=== PATIENT | male | born 1960 | race Caucasian/White ===

== ENCOUNTER 2016-04-04 10:42 | Day surgery (SDC) | payer OTHER ==
[~2016-04-04] VITALS: Ht 175.3 cm; Wt 95.2 kg
[~2016-04-04 10:42] MED LIST: 0.9% Sodium Chloride 1,000 ML IV SCH; HYDR-4150 PO; Sodium Chloride LOK Flush 10 mL Syringe IV PRN; fentaNYL-PF 50 mCg/mL 2 mL Inj IVPUSH PRN
[2016-04-04] MEDS ORDERED: LISI-567 PO (11:08)
[2016-04-04 11:14] VITALS: BP 147/89; PULSE 55; RESP 16; O2SAT 97
[2016-04-04 12:32] VITALS: BP 121/94; PULSE 54; RESP 16; O2SAT 95
[2016-04-04 12:41] VITALS: BP 137/86; PULSE 71; RESP 16; O2SAT 100
--- NOTE | 2016-04-05 00:13 | ENDO ---
[address] [address] ENDOSCOPY PROCEDURE PATIENT: SHIRLEY PERALTA : 1960 MR#: [id number] ADMIT: 04/04/2016 JOB ID: [id number] DATE OF PROCEDURE: 04/04/2016 PRIMARY PROVIDER: Fred Fair MD. PROCEDURE: Colonoscopy with hot snare polypectomy. INDICATIONS: A 55-year-old male with a personal history of adenomatous polyps. He had a large polyp that was removed from the cecum. He is due for surveillance. EQUIPMENT: [employer]-H180AL. SEDATION: 1. Versed 3 mg. 2. Fentanyl 75 mcg. COMPLICATIONS: None identified. BOWEL PREPARATION: Fair, adequate exam. PROCEDURE INFORMATION: After the risks and benefits were explained, written and verbal informed consent was obtained. The patient was brought into the endoscopy suite and placed into the left lateral decubitus position. Sedation was achieved as above. A digital rectal examination was accomplished. No significant pathology appreciated. The scope was introduced into the rectum and advanced under direct visualization to the level of the cecum, as identified by the appendiceal orifice and ileocecal valve. The scope was slowly withdrawn to carefully examine the mucosa for any defects or lesions. Retroflexed views were accomplished in the rectum. The colon was decompressed. The scope was removed from the patient tolerated the procedure well. FINDINGS: In the sigmoid colon, there was an approximately 6 mm polyp sessile removed with hot snare. No other significant pathology was appreciated throughout. We compared photographs from the last colonoscopy three years ago in the cecum and there was absolutely no evidence of any residual polypoid mucosa there. Multiple photographs were again taken. Retroflexed views from within the rectum were unremarkable. ENDOSCOPIC DIAGNOSIS: Diminutive sigmoid polyp. RECOMMENDATIONS: 1. Await histopathology. 2. Repeat colonoscopy in five years.
--- NOTE | 2016-04-05 14:37 | PATH ---
SURGICAL PATHOLOGY Attending Physician:Rosa Aguiar CASE STATUS: Signed Out PATIENT NAME: SHIRLEY PERALTA PID: [id number] : 1960 DATE COLLECTED:04/04/2016 20:22 SPECIMEN: Colon, Biopsy CLINICAL HISTORY: 1). SIGMOID POLYP FINAL DIAGNOSIS: 1.SIGMOID POLYP: TUBULAR ADENOMA. ICD10 CODE D12.5 GROSS DESCRIPTION: Received in formalin, labeled with the patient' s name and "sigmoid polyp", is one fragment of wheeler, soft tissue measuring 0.3 x 0.2 x 0.2 cm. The fragment is totally submitted in one cassette. ([id number]) MICRO DESCRIPTION: See diagnosis. ICD-9 CODES: CPT CODES: 1: 88416 Electronically Signed Out Dawn Farris MD [facility] Pathology [facility] [address], [place] [address] Technical component performed at [facility], [facility] [address], [place], [address]
== END 2016-04-04 23:59 | disposition home or self-care (01) ==
LOC: END 10:42
PROVIDERS: ATTEND Internal Medicine Gastroenterology
DX: Z12.11 Encounter for screening for malignant neoplasm of colon (principal); Z86.010 Personal history of colon polyps; D12.5 Benign neoplasm of sigmoid colon
CPT/HCPCS: 45385; G0500; J2250; J3010; J7030